=== PATIENT | female | born 1955 | race Two or more races ===

== ENCOUNTER 2020-02-02 19:52 | Inpatient (IN) | payer MEDICAID, OTHER ==
[~2020-02-02] VITALS: Ht 165.1 cm; Wt 70.3 kg
[2020-02-02] MEDS ORDERED: ASPIRIN 325 MG TABLET ONE (20:12)
[2020-02-02] MEDS ORDERED: NITROGLYCERIN PACKET 1 GM PACKET ONE (20:12)
[2020-02-02 20:15] LABS: BASOPHILS % (AUTO) 0.6 % (0.0-2.0); EOSINOPHILS % (AUTO) 0.9 % (0.0-6.0); HEMATOCRIT 38 % (33-45); HEMOGLOBIN 12.6 g/dL (11.5-14.8); LYMPHOCYTES # (AUTO) 2.1 /CMM (0.8-4.8); LYMPHOCYTES % (AUTO) 31.9 % (20.0-44.0); MEAN CORPUSCULAR HGB CONC 33 g/dl (31.0-36.0); MEAN CORPUSCULAR VOLUME 107 fL (82-100); MONOCYTES # (AUTO) 0.6 /CMM (0.1-1.30); MONOCYTES % (AUTO) 9.2 % (2.0-12.0); NEUTROPHILS # (AUTO) 3.7 /CMM (1.8-8.9); NEUTROPHILS % (AUTO) 57.4 % (43.0-81.0); PLATELET COUNT (AUTO) 164 /CMM (150-450); RED BLOOD CELL COUNT(AUTO) 3.54 MIL/uL (4.0-5.2); WHITE BLOOD COUNT (AUTO) 6.5 K/uL (4.3-11.0)
--- NOTE | 2020-02-02 20:18 | NUR ---
BIB EMS C/O L ARM PAIN X3 DAYS, SOB X1 DAY
[2020-02-02 20:25] LABS: CALCIUM, SERUM 8.5 mg/dL (8.5-10.1); CARBON DIOXIDE 25 mmol/L (21-32); CHLORIDE 104 mmol/L (98-107); CREATININE 1.2 mg/dL (0.6-1.3); GLUCOSE 98 mg/dL (74-106); POTASSIUM 3.6 mmol/L (3.5-5.1); SODIUM SERUM 139 mmol/L (136-145); UREA NITROGEN, BLOOD 20 mg/dL (7-18)
[2020-02-02] MEDS ORDERED: ASPIRIN 325 MG TABLET PO ONE (20:30)
[2020-02-02] MEDS ORDERED: NITROGLYCERIN PACKET 1 GM PACKET TD ONE (20:30)
[2020-02-02 20:40] LABS: ALANINE AMINOTRANSFERASE 52 U/L (12-78); ALBUMIN 3.4 g/dL (3.4-5.0); ALKALINE PHOSPHATASE 86 U/L (46-116); ASPARTATE AMINOTRANSFERASE 36 U/L (15-37); BILIRUBIN,DIRECT 0.1 mg/dL (0.0-0.2); BILIRUBIN,TOTAL 0.3 mg/dL (0.2-1.0); TOTAL PROTEIN, SERUM 7.2 g/dL (6.4-8.2)
--- NOTE | 2020-02-02 20:42 | NUR ---
GAVE MOVESHEET TO ADMITTING
[2020-02-02] MEDS ORDERED: LISI10TA5 PO (21:50)
[2020-02-02] MEDS ORDERED: ATOR20TA PO (21:50)
[2020-02-02] MEDS ORDERED: AMLO5TAB9 PO (21:50)
[2020-02-02] MEDS ORDERED: LISI40TA4 PO (21:50)
[2020-02-02] MEDS ORDERED: MONT10TA22 PO (21:50)
[2020-02-02] MEDS ORDERED: ZOLPIDEM TARTRATE 5 MG TABLET PO PRN (22:30)
[2020-02-02] MEDS ORDERED: ONDANSETRON HCL/PF 4 MG/2 ML VIAL IVP PRN (22:30)
[2020-02-02] MEDS ORDERED: NITROGLYCERIN 0.4 MG/TAB BOTTLE SL ONE (22:30)
[2020-02-02] MEDS ORDERED: Z GUARD REMEDY 2 OZ OINT TP PRN (22:30)
[2020-02-02] MEDS ORDERED: MAGNESIUM HYDROXIDE 30 ML UDC PO PRN (22:30)
[2020-02-02] MEDS ORDERED: MAG HYDROX/AL HYDROX/SIMETH 30 ML UDC PO PRN (22:30)
[2020-02-02] MEDS ORDERED: IV NS 0.9% 1,000 ML IV ONE (22:30)
[2020-02-02] MEDS ORDERED: ACETAMINOPHEN 325 MG TABLET PO PRN (22:30)
[2020-02-02] MEDS ORDERED: HYDROCODONE/APAP 5/325MG 1 EACH TABLET PO PRN (22:30)
--- NOTE | 2020-02-02 22:42 | NUR ---
REPORT GIVEN TO SINTIA
[2020-02-02 23:00] VITALS: BP 131/92
--- NOTE | 2020-02-02 23:00 | NUR ---
JAZZ MUSICIAN NOTES PATIENT ARRIVED ON FLOOR AT 2300. PATIENT IS ALERT AND ORIENTED X 4. BREATHING EVEN AND UNLABORED ON ROOM AIR. SHOWS NO SIGNS OF ACUTE RESPIRATORY DISTRESS. NO ACUTE PAIN. IV IS R WRIST 18G IS CLEAN DRY AND INTACT. SHOWS NO SIGNS OF INFILTRATION NO REDNESS. TELE MONITOR SB/SR IRREGULAR. BELONGINGS CHECKLIST COMPLETED, AND SKIN ASSESSMENT DONE. PATIENT EDUCATED ON CALLING CALL LIGHT, AND ORIENTED TO STAFF AND UNIT. SAFETY PRECAUTIONS IN PLACE. BED IN LOWEST POSITION, LOCKED, AND CALL LIGHT KEPT WITHIN REACH. WILL CONTINUE TO MONITOR.
--- NOTE | 2020-02-02 23:07 | NUR ---
PT WAS TRANSFERRED TO 304 UNDER ACLS
--- NOTE | 2020-02-02 23:47 | NUR ---
HORSE FARM MANAGER NOTES PATIENT COMPLAINING OF PAIN 04/15. GIVEN PRN NORCO AT 2347. WILL CONTINUE TO MONITOR.
[2020-02-03] VITALS (21 sets, daily range): BP systolic 118–174; BP diastolic 52–99
[2020-02-03] MEDS ORDERED: NITROGLYCERIN 0.4 MG/TAB BOTTLE SL PRN (00:30)
--- NOTE | 2020-02-03 06:37 | NUR ---
LABOR REPRESENTATIVE NOTES PATIENT IS ALERT AND ORIENTED X 4. BREATHING EVEN AND UNLABORED ON ROOM AIR. SHOWS NO SIGNS OF ACUTE RESPIRATORY DISTRESS. NO ACUTE PAIN. IV IS R WRIST 18G IS CLEAN DRY AND INTACT RUNNING NS 75ML/HR. SHOWS NO SIGNS OF INFILTRATION NO REDNESS. TELE MONITOR SB/SR IRREGULAR. ALL DUE MEDICATIONS GIVEN. SAFETY PRECAUTIONS IN PLACE. BED IN LOWEST POSITION, LOCKED, AND CALL LIGHT KEPT WITHIN REACH. WILL ENDORSE TO ONCOMING NURSE.
[2020-02-03 07:17] LABS: BASOPHILS % (AUTO) 0.4 % (0.0-2.0); EOSINOPHILS % (AUTO) 1.6 % (0.0-6.0); HEMATOCRIT 36 % (33-45); HEMOGLOBIN 12.2 g/dL (11.5-14.8); LYMPHOCYTES # (AUTO) 1.7 /CMM (0.8-4.8); LYMPHOCYTES % (AUTO) 36.9 % (20.0-44.0); MEAN CORPUSCULAR HGB CONC 34 g/dl (31.0-36.0); MEAN CORPUSCULAR VOLUME 106 fL (82-100); MONOCYTES # (AUTO) 0.5 /CMM (0.1-1.30); MONOCYTES % (AUTO) 9.6 % (2.0-12.0); NEUTROPHILS # (AUTO) 2.4 /CMM (1.8-8.9); NEUTROPHILS % (AUTO) 51.5 % (43.0-81.0); PLATELET COUNT (AUTO) 135 /CMM (150-450); RED BLOOD CELL COUNT(AUTO) 3.38 MIL/uL (4.0-5.2); WHITE BLOOD COUNT (AUTO) 4.7 K/uL (4.3-11.0)
--- NOTE | 2020-02-03 07:30 | NUR ---
RN OPENING NOTE Patient is resting in bed, A/O x4, showing no signs of acute distress or SOB, stable on RA. Tele monitor sinus delmy 48-50s. IV line in the right wrist #18g is clean and patent s/l. Patient is kept NPO due to cardiac cath today. Bed is in lowest position, side rails x3 in upright position, call light is within reach and patient is aware of how to call for assistance when needed. Will continue with plan of care.
[2020-02-03 07:45] LABS: CALCIUM, SERUM 8.3 mg/dL (8.5-10.1); CREATININE 0.9 mg/dL (0.6-1.3); MAGNESIUM 2.1 mg/dL (1.8-2.4); PHOSPHORUS 3.3 mg/dL (2.5-4.9); POTASSIUM 3.4 mmol/L (3.5-5.1)
[2020-02-03] MEDS: AMLODIPINE BESYLATE 5 MG TABLET PO SCH (08:45)
[2020-02-03] MEDS: ATORVASTATIN 10 MG TABLET PO SCH (08:45)
[2020-02-03] MEDS: LISINOPRIL (10MG) 10 MG TABLET PO SCH (08:46)
[2020-02-03] MEDS ORDERED: ASPIRIN 81 MG TAB.CHEW PO ONE (09:00)
[2020-02-03] MEDS ORDERED: LISINOPRIL (20MG) 20 MG TABLET PO SCH (09:00)
[2020-02-03] MEDS ORDERED: IODIXANOL 150 ML IV ONE (09:02)
[2020-02-03] MEDS ORDERED: VERAPAMIL HCL IV 5 MG/2 ML VIAL ONE (09:02)
[2020-02-03] MEDS ORDERED: LIDOCAINE HCL/PF 1% 30 ML SDV ONE (09:02)
[2020-02-03] MEDS ORDERED: NITROGLYCERIN ICAR 1,000 MCG/10 ML VIAL ICAR ONE (09:03)
[2020-02-03] MEDS ORDERED: IV NS 0.9% 1,000 ML ONE (09:18)
[2020-02-03] MEDS ORDERED: HEPARIN SODIUM, PORCINE 1,000 UNIT/ML VIAL ONE (09:19)
[2020-02-03] MEDS ORDERED: POTASSIUM CHLORIDE 20 MEQ TAB.PRT.SR PO SCH ×2 (10:00→14:00)
--- NOTE | 2020-02-03 10:00 | NUR ---
RN NOTE Patient taken down to wood preserving plant laborer for cardiac cath placement.
[2020-02-03] MEDS ORDERED: MIDAZOLAM HCL 2 MG/2ML VIAL ONE (11:43)
[2020-02-03] MEDS ORDERED: FENTANYL PF 100MCG/2ML AMPUL ONE (11:43)
--- NOTE | 2020-02-03 12:45 | NUR ---
RN/ICU- RECEIVED PT. FROM [facility] [employer] [facility] COOK VIA BED PER ACLS PROTOCOL, ACCOMPANIED BY [employer] FRY COOK RN. PT. IS AWAKE, ALERT, EXPRESSIVE OF NEEDS. DENIES PAIN OR DISCOMFORT. EKG SB W/ HR-54MIN. BP-146/81. W/ RIGHT RADIAL TR BAND IN PLACE. NO SWELLING. HEMATOMA OR BLEEDING NOTED. W/ GOOD RADIAL AND BRACHIAL PULSES NOTED. RIGHT UE IS WARM AND ABLE TO MOVE FINGERS. UE KEPT ELEVATED ON PILLOW.
--- NOTE | 2020-02-03 13:10 | NUR ---
RN/ICU- STARTED REMOVING 3 ML OF AIR FROM TR BAND AT THIS TIME. W/ TOTAL OF 15ML VOLUME OF AIR. PER PROTOCOL. NO BLEEDING NOTED. W/ GOOD PULSES NOTED.
--- NOTE | 2020-02-03 13:47 | NUR ---
RILEY NOTE Patient transferred to ICU. Bedside report given to Luh LIN. All belongings with patient. Addendum: 02/03/20 at 1350 by LETICIA FRANCO RN unable to administer potassium replacement due to patient in laborer tan house. Endorsed to FIBERGLASS BOAT ASSEMBLY SUPERVISORRILEY falk to give potassium replacement.
[2020-02-03] MEDS ORDERED: IV NS 0.9% 1,000 ML IV SCH (14:30)
--- NOTE | 2020-02-03 14:30 | NUR ---
RN/ICU- PT. ON CARDIAC DIET, DIET SERVED . W/ MINIMAL ASSIST.
[2020-02-03] MEDS ORDERED: MONTELUKAST SODIUM (10MG) 10 MG TABLET PO SCH (18:00)
--- NOTE | 2020-02-03 20:00 | NUR ---
RN/ICU- continue to assume care of this pt. no bleeding, swelling or hematoma on previous tr band site- right radial, w/ good radial pulses.
[2020-02-03] MEDS ORDERED: IV NS 0.9% 1,000 ML IV PRN (20:30)
--- NOTE | 2020-02-03 23:00 | NUR ---
RN/ICU-PT. STABLE, ASLEEP, NO BLEEDING ON RIGHT RADIAL PREVIOUS TR BAND SITE. INTACT W/ TEGADERM. KEPT ELEVATED ON PILLOW.REPORT GIVEN TO QUENTIN HIRSCH
--- NOTE | 2020-02-03 23:46 | NUR ---
ICU/MEDICAL OFFICER RECEIVED PT FROM DK LIN. PT RESTING IN BED. NO S/S OF DISTRESS OR SOB. VSS WILL CONTINUE TO MONITOR.
[2020-02-04] VITALS (11 sets, daily range): BP systolic 119–160; BP diastolic 60–98
[2020-02-04 05:29] LABS: CALCIUM, SERUM 8.7 mg/dL (8.5-10.1)
--- NOTE | 2020-02-04 06:49 | NUR ---
ICU/RECYCLING COORDINATOR PT TRANSFERRED TO ROOM 307-2 VIA WHEELCHAIR. REPORT TO CHACHA LIN.
--- NOTE | 2020-02-04 06:58 | NUR ---
MS/TELE/RN RECEIVED PATIENT FROM ICU BY BED AT AROUND 0640. PATIENT WAS AWAKE, ALERT, ORIENTED, COMFORTABLE, NO DISTRESS NOTED, VITAL SIGNS STABLE, PLACED CALL LIGHT IN REACH, WILL MONITOR.
[2020-02-04] MEDS: AMLODIPINE BESYLATE 5 MG TABLET PO SCH (09:51)
[2020-02-04] MEDS: ATORVASTATIN 10 MG TABLET PO SCH (09:51)
[2020-02-04] MEDS: LISINOPRIL (10MG) 10 MG TABLET PO SCH (09:59)
[2020-02-04] MEDS ORDERED: HYDR-4077 PO (15:31)
[2020-02-04] MEDS ORDERED: hydrALAZINE HCL 50 MG TABLET PO ONE (16:00)
== END 2020-02-04 18:30 | disposition home or self-care (01) | DRG 191 ==
LOC: ER 19:54 → TELE 22:13 → ICU 02-03 12:53 → MED 02-04 06:45
PROVIDERS: ADMIT Nurse Practitioner Acute Care; ATTEND Nurse Practitioner Acute Care
PROC: B211YZZ Fluoroscopy of Multiple Coronary Arteries using Other Contrast (ICD-10-PCS; principal; 2020-02-03)
PROC: 4A023N7 Measurement of Cardiac Sampling and Pressure, Left Heart, Percutaneous Approach (ICD-10-PCS; principal; 2020-02-03)
DX: I20.1 Angina pectoris with documented spasm (principal); D69.6 Thrombocytopenia, unspecified; D75.89 Other specified diseases of blood and blood-forming organs; E78.5 Hyperlipidemia, unspecified; I10 Essential (primary) hypertension; K21.9 Gastro-esophageal reflux disease without esophagitis; E87.6 Hypokalemia; I25.2 Old myocardial infarction; Z86.73 Personal history of transient ischemic attack (TIA), and cerebral infarction without residual deficits; R00.1 Bradycardia, unspecified
CPT/HCPCS: 36415; 71045-TC; 80048-TC; 80061-TC; 80076-TC; 83735-TC; 84100-TC; 84484-TC; 85025-TC; 85378-TC; 85730-TC; 87081-TC; 93307-TC; C1887; G0378; G0500; J1644; J2250; J2405; J3010; J3490; J7030; J7120; Q9967